=== PATIENT | male | born 1940 | race Caucasian/White ===

== ENCOUNTER 2017-06-16 09:49 | Emergency (ER) | payer OTHER, MEDICAID ==
[~2017-06-16] VITALS: Wt 64.4 kg
[~2017-06-16 09:49] MED LIST: OMEP40CA6 PO; ONDA4TAB35 PO; SUCR1TAB56 PO
[2017-06-16] MEDS ORDERED: SOD CHLORIDE 0.9% 1,000 ML IV STA (10:42)
--- NOTE | 2017-06-16 10:49 | ERD ---
ER Documentation Chief Complaint Chief Complaint diarrhea HPI 76-year-old male with a history of hypertension, hyperlipidemia, diabetes mellitus type 2, presents with a chief complaint of diarrhea 1 month. Has taken [id number] medications without relief. It took Pepto-Bismol and describes the diarrhea as darker. Since discontinuing Pepto-Bismol over the past week the diarrhea has now become just liquidy without specific characteristics. 3 times a day. No similar symptoms in past. No sick contacts. States that he has 5 out of 10 abdominal pain in the lower abdomen today. Nonspecific to any side. Patient has no other complaints and describes no other associated manifestations. Nursing notes have been reviewed and are consistent with history given. ROS All systems reviewed and are negative except as per history of present illness. Medications Home Meds Active Scripts Loperamide Hcl* (Imodium*) 2 Mg Capsule, 2 MG PO .AFTER EA LOOSE BM Y for DIARRHEA, #10 TAB Prov:CRISTOBAL MARINO PA-C 06/16/17 Omeprazole* (Omeprazole*) 40 Mg Capsule.dr, 40 MG PO BID, #30 CAP Prov:DAPHNEY NAVA 04/04/15 Ondansetron Hcl* (Zofran* ODT) 4 mg -ODT Tab.disper, 4 MG PO Q4H Y for NAUSEA AND OR VOMITING, #20 TAB Prov:DAPHNEY NAVA 04/04/15 Sucralfate* (Carafate*) 1 Gm Tab, 1 GM PO AC MEALS AND BEDTIME, #30 TAB Take one tab PO one hour prior to meals and nightly at bedtime. Prov:DAPHNEY NAVA 04/04/15 Allergies Allergies: Coded Allergies: No Known Allergy (Unverified , 06/16/17) PMhx/Soc History of Surgery: Yes (nose) Hx Alcohol Use: No Hx Substance Use: No Hx Tobacco Use: No Smoking Status: Never smoker Physical Exam Vitals Vital Signs Date Time Temp Pulse Resp B/P Pulse Ox O2 Delivery O2 Flow Rate FiO2 06/16/17 09:57 97.9 80 20 131/60 98 Physical Exam Const: Well-appearing 76-year-old male no acute distress Head: Atraumatic Eyes: Normal Conjunctiva ENT: Normal External Ears, Nose and Mouth. Neck: Full range of motion..~ No meningismus. Resp: Clear to auscultation bilaterally Cardio: Regular rate and rhythm, no murmurs. Cap refill less than 2 seconds. Radial pulses 2+ bilaterally. Abd: Soft, non tender, non distended. Normal bowel sounds Skin: No petechiae or rashes Back: No midline or flank tenderness Ext: No cyanosis, or edema Neur: Awake and alert Psych: Normal Mood and Affect Result Diagram: 06/16/17 1051 06/16/17 1051 Results 24 hrs Laboratory Tests Test 06/16/17 10:51 06/16/17 10:56 White Blood Count 9.910^3/ul Red Blood Count 5.0710^6/ul Hemoglobin 15.3g/dl Hematocrit 46.7% Mean Corpuscular Volume 92.1fl Mean Corpuscular Hemoglobin 30.2pg Mean Corpuscular Hemoglobin Concent 32.8g/dl Red Cell Distribution Width 12.6% Platelet Count 04104^3/UL Mean Platelet Volume 10.0fl Neutrophils % 68.2% Lymphocytes % 23.3% Monocytes % 6.9% Eosinophils % 0.8% Basophils % 0.5% Nucleated Red Blood Cells % 0.0/100WBC Neutrophils # 6.710^3/ul Lymphocytes # 2.310^3/ul Monocytes # 0.710^3/ul Eosinophils # 0.110^3/ul Basophils # 0.110^3/ul Nucleated Red Blood Cells # 0.010^3/ul Prothrombin Time 13.3Sec Prothrombin Time Ratio 1.0 INR International Normalized Ratio 1.01 Activated Partial Thromboplast Time 25.9Sec Sodium Level 145mmol/L Potassium Level 4.2mmol/L Chloride Level 102mmol/L Carbon Dioxide Level 30mmol/L Anion Gap 17 Blood Urea Nitrogen 7mg/dl Creatinine 0.70mg/dl Glucose Level 166mg/dl Bedside Glucose 150mg/dL Calcium Level 9.5mg/dl Total Bilirubin 1.1mg/dl Direct Bilirubin 0.00mg/dl Indirect Bilirubin 1.1mg/dl Aspartate Amino Transf (AST/SGOT) 49IU/L Alanine Aminotransferase (ALT/SGPT) 60IU/L Alkaline Phosphatase 122IU/L Total Protein 8.0g/dl Albumin 4.5g/dl Globulin 3.50g/dl Albumin/Globulin Ratio 1.28 Lipase 45U/L Urine Color YELLOW Urine Clarity CLEAR Urine pH 5.0 Urine Specific [place] 1.016 Urine Ketones NEGATIVEmg/dL Urine Nitrite NEGATIVEmg/dL Urine Bilirubin NEGATIVEmg/dL Urine Urobilinogen NEGATIVEmg/dL Urine Leukocyte Esterase NEGATIVELeu/ul Urine Microscopic RBC 2/HPF Urine Microscopic WBC 1/HPF Urine Mucus MODERATE/HPF Urine Hemoglobin 1+mg/dL Urine Glucose NEGATIVEmg/dL Urine Total Protein NEGATIVEmg/dl Current Medications Medications (Trade) Dose Ordered Sig/Milena Route PRN Reason Start Time Stop Time Status Last Admin Dose Admin Proparacaine HCl (Alcaine 0.5%) 1 drop ONCE ONCE RIGHT EYE 06/16/17 11:00 06/16/17 11:00 DC Fluorescein Sodium 1 strip 1 strip ONCE ONCE RIGHT EYE 06/16/17 11:00 06/16/17 11:00 DC Sodium Chloride (NS) 1,000 ml @ 1,000 mls/hr Q1H STAT IV 06/16/17 10:42 06/16/17 11:41 06/16/17 10:53 Procedures/MDM 76-year-old male presenting with a chief complaint of diarrhea 1 month. No specific characteristics given. At this time a little suspicion for infectious invasive diarrhea, acute abdomen, or other bacterial involvement. Patient was given loperamide with instructions to follow-up with PCP for stool culture and further evaluation. No suspicion for anemia or volume depletion. I have spoke with the patient regarding their condition and future management. They have verbally responded that they understand their status and treatment plan. The patients vitals are stable, and their current condition is appropriate for discharge. The patient will be given discharge instructions with return precautions. Departure Diagnosis: Primary Impression: Diarrhea Diarrhea type: unspecified type Qualified Code: R19.7 - Diarrhea, unspecified type Additional Impression: Diarrhea with dehydration Condition: Stable Additional Instructions: Follow up with your PCP within the next 1-3 days for a more thorough evaluation and a possible referral to a specialist. Return the the emergency department immediately if symptoms worsen or change. If you have any questions regarding medications, ask your pharmacist or us before you leave. If any adverse reactions occur while taking your medications, discontinue the treatment and return to the emergency department immediately. Take your medications as directed, and complete the entire course of treatment. CRISTOBAL MARINO PA-C Jun 16, 2017 10:49
[2017-06-16] MEDS ORDERED: FLUORESCEIN STRIP RIGHT EYE ONE (11:00)
[2017-06-16] MEDS ORDERED: PROPARACAINE 0.5% 15 ML OPH RIGHT EYE ONE (11:00)
[2017-06-16] MEDS ORDERED: LOPE2CAP PO (11:06)
== END 2017-06-16 12:38 | disposition left against medical advice (07) ==
LOC: FTE 09:49
DX: R19.7 Diarrhea, unspecified (principal); E86.0 Dehydration; I10 Essential (primary) hypertension; E11.9 Type 2 diabetes mellitus without complications; R10.9 Unspecified abdominal pain
CPT/HCPCS: 36415; 80053; 81001; 82962; 83690; 85025; 85610; 85730; 99284; J7030